=== PATIENT | male | born 1940 | race Caucasian/White ===

== ENCOUNTER 2025-06-06 12:43 | Outpatient (CLI) | payer OTHER, MEDICARE, SELFPAY | END 2025-06-06 12:44 | disposition home or self-care (01) | PROVIDERS: PCP Family Medicine; Visit Provider Nurse Practitioner Family | DX: L89.313 Pressure ulcer of right buttock, stage 3 (principal); L89.323 Pressure ulcer of left buttock, stage 3; E11.9 Type 2 diabetes mellitus without complications | CPT/HCPCS: 97597 ==

== ENCOUNTER 2025-06-13 10:27 | Outpatient (CLI) | payer MEDICARE, OTHER, SELFPAY | END 2025-06-13 10:28 | disposition home or self-care (01) | LOC: WOUND 10:27 | PROVIDERS: PCP Family Medicine | DX: L89.323 Pressure ulcer of left buttock, stage 3 (principal); L89.313 Pressure ulcer of right buttock, stage 3; E11.9 Type 2 diabetes mellitus without complications; Q82.0 Hereditary lymphedema | CPT/HCPCS: 11042 ==

== ENCOUNTER 2025-06-20 10:12 | Outpatient (CLI) | payer MEDICARE, OTHER, SELFPAY | END 2025-06-20 10:13 | disposition home or self-care (01) | LOC: WOUND 10:13 | PROVIDERS: PCP Family Medicine | DX: L89.313 Pressure ulcer of right buttock, stage 3 (principal); L89.323 Pressure ulcer of left buttock, stage 3; E11.9 Type 2 diabetes mellitus without complications | CPT/HCPCS: 11042; 87070; 87186 ==

== ENCOUNTER 2025-06-27 10:30 | Outpatient (CLI) | payer MEDICARE, OTHER, SELFPAY | END 2025-06-27 10:31 | disposition home or self-care (01) | LOC: WOUND 10:30 | PROVIDERS: PCP Family Medicine; Visit Provider Nurse Practitioner Family | DX: L89.313 Pressure ulcer of right buttock, stage 3 (principal); L89.323 Pressure ulcer of left buttock, stage 3; E11.9 Type 2 diabetes mellitus without complications | CPT/HCPCS: G0463 ==

== ENCOUNTER 2025-07-04 10:25 | Outpatient (CLI) | payer MEDICARE, OTHER, SELFPAY | END 2025-07-04 10:26 | disposition home or self-care (01) | LOC: WOUND 10:25 | PROVIDERS: PCP Family Medicine; Visit Provider Nurse Practitioner Family | DX: L89.313 Pressure ulcer of right buttock, stage 3 (principal); L89.323 Pressure ulcer of left buttock, stage 3; E11.9 Type 2 diabetes mellitus without complications | CPT/HCPCS: G0463 ==

== ENCOUNTER 2025-07-11 10:26 | Outpatient (CLI) | payer MEDICARE, OTHER, SELFPAY | END 2025-07-11 10:27 | disposition home or self-care (01) | LOC: WOUND 10:27 | PROVIDERS: PCP Family Medicine; Visit Provider Nurse Practitioner Family | DX: L89.313 Pressure ulcer of right buttock, stage 3 (principal); L89.323 Pressure ulcer of left buttock, stage 3; E11.9 Type 2 diabetes mellitus without complications; Q82.0 Hereditary lymphedema | CPT/HCPCS: G0463 ==

== ENCOUNTER 2025-07-18 10:25 | Outpatient (CLI) | payer MEDICARE, OTHER, SELFPAY | END 2025-07-18 10:26 | disposition home or self-care (01) | LOC: WOUND 10:25 | PROVIDERS: PCP Family Medicine; Visit Provider Nurse Practitioner Family | DX: L89.313 Pressure ulcer of right buttock, stage 3 (principal); L89.323 Pressure ulcer of left buttock, stage 3; E11.9 Type 2 diabetes mellitus without complications; Q82.0 Hereditary lymphedema; Z79.84 Long term (current) use of oral hypoglycemic drugs | CPT/HCPCS: G0463 ==

== ENCOUNTER 2025-08-01 10:21 | Outpatient (CLI) | payer MEDICARE, OTHER, SELFPAY | END 2025-08-01 10:22 | disposition home or self-care (01) | LOC: WOUND 10:21 | PROVIDERS: PCP Family Medicine; Visit Provider Nurse Practitioner Family | DX: Q82.0 Hereditary lymphedema (principal); E11.9 Type 2 diabetes mellitus without complications; Z87.2 Personal history of diseases of the skin and subcutaneous tissue | CPT/HCPCS: G0463 ==